=== PATIENT | male | born 2000 | race Caucasian/White ===

== ENCOUNTER 2023-07-06 22:26 | Inpatient (IN) ==
[2023-07-06 23:03] LABS: Basophils # (auto) 0.03 K/uL (0.00-0.20); Basophils % (auto) 0.5 %; Eosinophils # (auto) 0.01 K/uL (0.00-0.50); Eosinophils % (auto) 0.2 %; Hematocrit (blood only) 40.4 % (42.0-52.0); Hemoglobin 14.5 g/dl (14.0-18.0); Immature Granulocytes # (auto) 0.02 K/uL (0.01-0.20); Immature Granulocytes % (auto) 0.3 %; Lymphocytes # (auto) 1.17 K/uL (1.20-3.40); Lymphocytes % (auto) 19.4 %; Mean Corpuscular Hemoglobin 29.3 pg (25.0-34.0); Mean Corpuscular Hgb Conc 35.9 g/dL (32.0-36.0); Mean Corpuscular Volume 81.6 fL (80.0-100.0); Mean Platelet Volume 9.1 fL (9.4-12.4); Monocytes # (auto) 0.39 K/uL (0.11-0.59); Monocytes % (auto) 6.5 %; Neutrophils % (auto) 73.1 %; Platelet Count 348 K/uL (130-400); RDW Coefficient of Variation 12.2 % (11.5-14.5); RDW Standard Deviation 36.2 fL (36.4-46.3); Red Blood Count 4.95 M/uL (4.70-6.10); White Blood Count 6.02 K/ul (4.8-10.8)
--- NOTE | 2023-07-06 23:28 | Emergency Department Note ---
Impression & Plan Drug overdose, Depression ED Provider Note ED Provider Note NAME: GABBY SCHMIDT AGE:22 SEX: Male : 2000 ARRIVES VIA: Private vehicle INFORMANT: Patient ED PROVIDER(s): Jacquie Quigley DO CHIEF COMPLAINT: Intentional overdose, mental health evaluation HPI: This is a 22-year-old male who presents emergency department due to concern for intentional overdose. Patient with a history of depression and does typically take Wellbutrin 100 mg twice a day. He does follow with psychiatry as well as seeing a therapist weekly. He admits to increased stress/pressure from academics this semester and is concerned about graduating. He states at 430 this afternoon he took a handful of his Wellbutrin, estimating that the number of pills was in the "teens". He states he never had symptoms until around 930 when he began to feel like he was "tripping", stating that he was lightheaded and had some hallucinations. He states these were very brief and resolved spontaneously. No other coingestions or recreational drug use this evening. He denies any alcohol use this evening. No current hallucinations. He states he feels shaky and anxious and has mild nausea but otherwise feels well. He denies headaches, abdominal pain, chest pain, shortness of breath. PAST MEDICAL HISTORY:See Below PAST SURGICAL HISTORY:See Below FAMILY HISTORY:See Below SOCIAL HISTORY:See Below HOME MEDICATIONS:See Below ALLERGIES:See Below VITALS:See Below PHYSICAL EXAMINATION: GENERAL: alert, well appearing, well nourished, no distress, non-toxic EYE EXAM: normal conjunctiva, PERRL and EOM's grossly intact NECK: supple, no nuchal rigidity, no adenopathy, non-tender LUNGS: Clear to auscultation. Normal chest wall mechanics, no w/r/r HEART: no murmurs, S1 normal and S2 normal ABDOMEN: abdomen soft, non-tender, normo-active bowel sounds, no masses, no rebound or guarding. SKIN: no rashes, petechiae, orbruising UPPER EXTREMITIES: upper extremities are grossly normal. FROM, nml pulses b/l. LOWER EXTREMITIES: No pitting edema. FROM, nml pulses b/l. NEURO EXAM: Normal sensorium, cranial nerves II-XII grossly intact, normal speech, no facial droop,nogross weakness of arms, no gross weakness of legs. Gross sensation intact. No ataxia. Vital Signs: reviewed and remarkable Differential Diagnosis: mood disorder, suicidal ideation, anxiety, depression, substance abuse, toxidrome, infection, hypoglycemia, electrolyte abnormalities, ICH as well as others were considered. MEDICAL DECISION MAKING: This is a 22-year-old male who presents following an intentional overdose. Poison control contacted by nursing staff prior to my arrival with instructions for supportive care and that patient can be observed for 12 hours from the ingestion this patient's Wellbutrin was not extended release. Labs drawn and sent, IV established, EKG performed at bedside interpreted me and patient monitored on telemetry. He was given IV fluids while monitored. He had mild nausea initially and was given Compazine with improvement. He tolerated p.o. without any vomiting. Patient medically cleared at 5 AM. Repeat EKG unremarkable. He was seen and evaluated by case management and referred to [facility] for additional inpatient treatment. Consultation(s): 0818: Signed 201 after discussion with [facility] liaison. ER Treatment Provided: See below Diagnostics Interpreted By Me: -ECG: Normal sinus at 99, normal axis, normal intervals, nonspecific ST/T wave changes -Cardiac Monitoring: An order was placed for continuous cardiac monitoring. The monitor shows a rate of 105 with sinus tachycardia rhythm. -Laboratory studies: As stated above and show below. Triage Nursing Note Reviewed Prior/Outside Records Reviewed Past Med/Surg History Social History Smoking Status: Never smoker Preferred Language: Kyrgyz Feels Safe at Home: Yes Gender Identity: Male Home Meds Home Medications Medication Instructions Recorded Confirmed bupropion HCl 150 mg tablet,12 hr 100 mg PO DAILY 07/07/23 07/07/23 sustained-release mirtazapine 15 mg tablet 7.5 mg PO HS 07/07/23 07/07/23 Results & Data (ED) Vital Signs Vital Signs - 24 hr 07/06/23 22:29 07/06/23 22:44 07/06/23 22:45 Temperature 36.6 C Temperature Source Temporal Artery Scan Pulse Rate 112 H 105 H 102 H Pulse Rate [Apical] Pulse Rate from SpO2 Sensor Pulse Rhythm Regular Pulse Rhythm [Apical] Pulse Strength Normal Pulse Strength [Apical] Respiratory Rate 17 16 Respiratory Effort / Characteristics Non-Labored Spontaneous Respiratory Depth Normal Respiratory Pattern Regular Blood Pressure 157/103 H Blood Pressure [Left Arm] Blood Pressure Mean 121 Blood Pressure Mean [Left Arm] Blood Pressure Position Sitting Blood Pressure Position [Left Arm] Pulse Oximetry 99 Oxygen Delivery Method Room Air Sepsis Recent Fever Within 48 Hours No Sepsis New/Unexplained Change in Mental Status N/A Sepsis Action Taken by Nursing No Action Required 07/06/23 22:50 07/06/23 22:50 07/06/23 22:52 Temperature Temperature Source Pulse Rate 112 H Pulse Rate [Apical] Pulse Rate from SpO2 Sensor 112 H Pulse Rhythm Pulse Rhythm [Apical] Pulse Strength Pulse Strength [Apical] Respiratory Rate 17 Respiratory Effort / Characteristics Respiratory Depth Respiratory Pattern Blood Pressure Blood Pressure [Left Arm] Blood Pressure Mean Blood Pressure Mean [Left Arm] Blood Pressure Position Blood Pressure Position [Left Arm] Pulse Oximetry 100 100 Oxygen Delivery Method Room Air Room Air Sepsis Recent Fever Within 48 Hours Sepsis New/Unexplained Change in Mental Status Sepsis Action Taken by Nursing 07/06/23 23:00 07/06/23 23:00 07/06/23 23:10 Temperature Temperature Source Pulse Rate 103 H 105 H Pulse Rate [Apical] Pulse Rate from SpO2 Sensor 105 H 105 H Pulse Rhythm Pulse Rhythm [Apical] Pulse Strength Pulse Strength [Apical] Respiratory Rate 22 15 Respiratory Effort / Characteristics Respiratory Depth Respiratory Pattern Blood Pressure 130/83 Blood Pressure [Left Arm] Blood Pressure Mean 95 Blood Pressure Mean [Left Arm] Blood Pressure Position Blood Pressure Position [Left Arm] Pulse Oximetry 98 98 Oxygen Delivery Method Sepsis Recent Fever Within 48 Hours Sepsis New/Unexplained Change in Mental Status Sepsis Action Taken by Nursing 07/06/23 23:20 07/06/23 23:31 07/07/23 00:00 Temperature Temperature Source Pulse Rate 105 H 114 H Pulse Rate [Apical] 110 H Pulse Rate from SpO2 Sensor 108 H Pulse Rhythm Pulse Rhythm [Apical] Pulse Strength Pulse Strength [Apical] Respiratory Rate 19 18 12 Respiratory Effort / Characteristics Non-Labored Spontaneous Respiratory Depth Normal Respiratory Pattern Regular Blood Pressure 140/94 Blood Pressure [Left Arm] 146/95 H Blood Pressure Mean 109 Blood Pressure Mean [Left Arm] 112 Blood Pressure Position Blood Pressure Position [Left Arm] Pulse Oximetry 98 98 99 Oxygen Delivery Method Room Air Sepsis Recent Fever Within 48 Hours Sepsis New/Unexplained Change in Mental Status Sepsis Action Taken by Nursing 07/07/23 01:00 07/07/23 01:30 07/07/23 01:36 Temperature Temperature Source Pulse Rate 91 H Pulse Rate [Apical] 98 H 98 H Pulse Rate from SpO2 Sensor Pulse Rhythm Pulse Rhythm [Apical] Pulse Strength Pulse Strength [Apical] Respiratory Rate 12 16 14 Respiratory Effort / Characteristics Non-Labored Spontaneous Non-Labored Spontaneous Respiratory Depth Normal Normal Respiratory Pattern Regular Regular Blood Pressure 124/83 Blood Pressure [Left Arm] 137/92 124/83 Blood Pressure Mean 96 Blood Pressure Mean [Left Arm] 107 96 Blood Pressure Position Blood Pressure Position [Left Arm] Pulse Oximetry 96 96 97 Oxygen Delivery Method Room Air Room Air Sepsis Recent Fever Within 48 Hours Sepsis New/Unexplained Change in Mental Status Sepsis Action Taken by Nursing 07/07/23 02:00 07/07/23 02:00 07/07/23 02:30 Temperature Temperature Source Pulse Rate 101 H Pulse Rate [Apical] Pulse Rate from SpO2 Sensor 99 H Pulse Rhythm Pulse Rhythm [Apical] Pulse Strength Pulse Strength [Apical] Respiratory Rate 18 Respiratory Effort / Characteristics Respiratory Depth Respiratory Pattern Blood Pressure 130/83 129/72 Blood Pressure [Left Arm] Blood Pressure Mean 100 91 Blood Pressure Mean [Left Arm] Blood Pressure Position Blood Pressure Position [Left Arm] Pulse Oximetry 97 Oxygen Delivery Method Room Air Sepsis Recent Fever Within 48 Hours Sepsis New/Unexplained Change in Mental Status Sepsis Action Taken by Nursing 07/07/23 02:30 07/07/23 02:39 07/07/23 03:00 Temperature Temperature Source Pulse Rate 98 H 101 H 89 Pulse Rate [Apical] Pulse Rate from SpO2 Sensor 97 H 93 H Pulse Rhythm Pulse Rhythm [Apical] Pulse Strength Pulse Strength [Apical] Respiratory Rate 13 17 Respiratory Effort / Characteristics Respiratory Depth Respiratory Pattern Blood Pressure Blood Pressure [Left Arm] Blood Pressure Mean Blood Pressure Mean [Left Arm] Blood Pressure Position Blood Pressure Position [Left Arm] Pulse Oximetry 96 96 Oxygen Delivery Method Room Air Room Air Sepsis Recent Fever Within 48 Hours Sepsis New/Unexplained Change in Mental Status Sepsis Action Taken by Nursing 07/07/23 03:00 07/07/23 03:30 07/07/23 03:30 Temperature Temperature Source Pulse Rate 101 H Pulse Rate [Apical] Pulse Rate from SpO2 Sensor 96 H Pulse Rhythm Pulse Rhythm [Apical] Pulse Strength Pulse Strength [Apical] Respiratory Rate 13 Respiratory Effort / Characteristics Respiratory Depth Respiratory Pattern Blood Pressure 128/74 130/73 Blood Pressure [Left Arm] Blood Pressure Mean 90 91 Blood Pressure Mean [Left Arm] Blood Pressure Position Blood Pressure Position [Left Arm] Pulse Oximetry 97 Oxygen Delivery Method Room Air Sepsis Recent Fever Within 48 Hours Sepsis New/Unexplained Change in Mental Status Sepsis Action Taken by Nursing 07/07/23 04:00 07/07/23 04:00 07/07/23 04:30 Temperature Temperature Source Pulse Rate 86 Pulse Rate [Apical] Pulse Rate from SpO2 Sensor 86 Pulse Rhythm Pulse Rhythm [Apical] Pulse Strength Pulse Strength [Apical] Respiratory Rate 17 Respiratory Effort / Characteristics Respiratory Depth Respiratory Pattern Blood Pressure 123/70 123/75 Blood Pressure [Left Arm] Blood Pressure Mean 88 91 Blood Pressure Mean [Left Arm] Blood Pressure Position Blood Pressure Position [Left Arm] Pulse Oximetry 96 Oxygen Delivery Method Room Air Sepsis Recent Fever Within 48 Hours Sepsis New/Unexplained Change in Mental Status Sepsis Action Taken by Nursing 07/07/23 04:30 07/07/23 04:30 07/07/23 05:00 Temperature Temperature Source Pulse Rate 85 Pulse Rate [Apical] 85 Pulse Rate from SpO2 Sensor 85 Pulse Rhythm Pulse Rhythm [Apical] Regular Pulse Strength Pulse Strength [Apical] Normal Respiratory Rate 17 16 Respiratory Effort / Characteristics Non-Labored Spontaneous Respiratory Depth Normal Respiratory Pattern Regular Blood Pressure 126/74 Blood Pressure [Left Arm] 123/75 Blood Pressure Mean 96 Blood Pressure Mean [Left Arm] 91 Blood Pressure Position Blood Pressure Position [Left Arm] Lying Pulse Oximetry 96 95 Oxygen Delivery Method Room Air Room Air Sepsis Recent Fever Within 48 Hours Sepsis New/Unexplained Change in Mental Status Sepsis Action Taken by Nursing 07/07/23 05:00 07/07/23 05:30 07/07/23 05:30 Temperature Temperature Source Pulse Rate 85 95 H Pulse Rate [Apical] Pulse Rate from SpO2 Sensor 85 97 H Pulse Rhythm Pulse Rhythm [Apical] Pulse Strength Pulse Strength [Apical] Respiratory Rate 17 20 Respiratory Effort / Characteristics Respiratory Depth Respiratory Pattern Blood Pressure 129/84 Blood Pressure [Left Arm] Blood Pressure Mean 96 Blood Pressure Mean [Left Arm] Blood Pressure Position Blood Pressure Position [Left Arm] Pulse Oximetry 96 98 Oxygen Delivery Method Room Air Sepsis Recent Fever Within 48 Hours Sepsis New/Unexplained Change in Mental Status Sepsis Action Taken by Nursing 07/07/23 06:00 07/07/23 06:00 07/07/23 06:00 Temperature Temperature Source Pulse Rate 84 Pulse Rate [Apical] 78 Pulse Rate from SpO2 Sensor 86 Pulse Rhythm Pulse Rhythm [Apical] Regular Pulse Strength Pulse Strength [Apical] Normal Respiratory Rate 16 17 Respiratory Effort / Characteristics Non-Labored Spontaneous Respiratory Depth Normal Respiratory Pattern Regular Blood Pressure 126/71 Blood Pressure [Left Arm] 126/71 Blood Pressure Mean 89 Blood Pressure Mean [Left Arm] 89 Blood Pressure Position Blood Pressure Position [Left Arm] Lying Pulse Oximetry 95 97 Oxygen Delivery Method Room Air Sepsis Recent Fever Within 48 Hours Sepsis New/Unexplained Change in Mental Status Sepsis Action Taken by Nursing 07/07/23 06:24 07/07/23 06:30 07/07/23 06:30 Temperature Temperature Source Pulse Rate 83 86 Pulse Rate [Apical] Pulse Rate from SpO2 Sensor 88 Pulse Rhythm Pulse Rhythm [Apical] Pulse Strength Pulse Strength [Apical] Respiratory Rate 17 Respiratory Effort / Characteristics Respiratory Depth Respiratory Pattern Blood Pressure 122/75 Blood Pressure [Left Arm] Blood Pressure Mean 90 Blood Pressure Mean [Left Arm] Blood Pressure Position Blood Pressure Position [Left Arm] Pulse Oximetry 97 Oxygen Delivery Method Sepsis Recent Fever Within 48 Hours Sepsis New/Unexplained Change in Mental Status Sepsis Action Taken by Nursing 07/07/23 07:00 07/07/23 07:00 07/07/23 07:30 Temperature Temperature Source Pulse Rate 86 88 Pulse Rate [Apical] Pulse Rate from SpO2 Sensor 87 88 Pulse Rhythm Pulse Rhythm [Apical] Pulse Strength Pulse Strength [Apical] Respiratory Rate 17 19 Respiratory Effort / Characteristics Respiratory Depth Respiratory Pattern Blood Pressure 129/81 Blood Pressure [Left Arm] Blood Pressure Mean 98 Blood Pressure Mean [Left Arm] Blood Pressure Position Blood Pressure Position [Left Arm] Pulse Oximetry 97 99 Oxygen Delivery Method Sepsis Recent Fever Within 48 Hours Sepsis New/Unexplained Change in Mental Status Sepsis Action Taken by Nursing 07/07/23 07:30 Temperature Temperature Source Pulse Rate Pulse Rate [Apical] Pulse Rate from SpO2 Sensor Pulse Rhythm Pulse Rhythm [Apical] Pulse Strength Pulse Strength [Apical] Respiratory Rate Respiratory Effort / Characteristics Respiratory Depth Respiratory Pattern Blood Pressure 132/86 Blood Pressure [Left Arm] Blood Pressure Mean 99 Blood Pressure Mean [Left Arm] Blood Pressure Position Blood Pressure Position [Left Arm] Pulse Oximetry Oxygen Delivery Method Sepsis Recent Fever Within 48 Hours Sepsis New/Unexplained Change in Mental Status Sepsis Action Taken by Nursing Laboratory Data 07/06/23 22:48 07/06/23 22:50 Lab Results 07/06/23 07/06/23 07/06/23 Range/Units 22:35 22:48 22:50 WBC 6.02 (4.8-10.8) K/ul RBC 4.95 (4.70-6.10) M/uL Hgb 14.5 (14.0-18.0) g/dl Hct 40.4 L (42.0-52.0) % MCV 81.6 (80.0-100.0) fL MCH 29.3 (25.0-34.0) pg MCHC 35.9 (32.0-36.0) g/dL RDW Std Deviation 36.2 L (36.4-46.3) fL RDW Coeff of Teodoro 12.2 (11.5-14.5) % Plt Count 348 (130-400) K/uL MPV 9.1 L (9.4-12.4) fL Immature Gran % (Auto) 0.3 % Neut % (Auto) 73.1 % Lymph % (Auto) 19.4 % [place] % (Auto) 6.5 % Eos % (Auto) 0.2 % Baso % (Auto) 0.5 % Neut # (Auto) 4.40 (1.40-6.50) K/uL Lymph # (Auto) 1.17 L (1.20-3.40) K/uL [place] # (Auto) 0.39 (0.11-0.59) K/uL Eos # (Auto) 0.01 (0.00-0.50) K/uL Baso # (Auto) 0.03 (0.00-0.20) K/uL Immature Gran # (Auto) 0.02 (0.01-0.20) K/uL Sodium 136 (136-145) mmol/L Potassium 3.2 L (3.5-5.1) mmol/L Chloride 102 (98-107) mmol/L Carbon Dioxide 23 (21-32) mmol/L Anion Gap 11 (3-11) BUN 10 (6-23) mg/dl Creatinine 1.07 (0.6-1.4) mg/dl Est Cr Clr Drug Dosing 102.1 ml/min Est GFR ( Amer) 114.4 ml/min Est GFR (Non-Af Amer) 98.7 ml/min BUN/Creatinine Ratio 9.3 L (10-20) Glucose 106 H (70-99(Fasting)) mg/dl Calcium 9.6 (8.6-10.3) mg/dl Total Bilirubin 2.6 H (0.2-1.0) mg/dl AST 22 (13-39) U/L ALT 21 (7-52) U/L Alkaline Phosphatase 50 (34-104) U/L Total Protein 7.3 (6.0-8.3) gm/dl Albumin 4.8 (3.4-5.0) gm/dl Globulin 2.5 (2.5-4.0) gm/dl Albumin/Globulin Ratio 1.9 (0.9-2) Salicylates < 3.0 L (3.0-30) mg/dl Urine Opiates Screen Neg (Neg) Ur Methadone, Qual Neg (Neg) Acetaminophen < 3 L (10-30) ug/ml Urine Barbiturates Neg (Neg) Ur Phencyclidine (PCP) Neg (Neg) U Amphetamin/Meth Scrn Neg (Neg) MDMA (Ecstasy) Screen Pos H (Neg) U Benzodiazepines Scrn Neg (Neg) Ur Cocaine Metabolite Neg (Neg) U Marijuana (THC) Screen Neg (Neg) Ethyl Alcohol mg/dL < 10.0 (<10.0) mg/dl SARS-CoV-2, RNA, NAAT NEGATIVE (NEGATIVE) Administered Medications Sodium Chloride (Nss) 1,000 mls @ 250 mls/hr IV .Q4H JULIA Stop: 08/05/23 23:29 Last Infusion: 07/07/23 08:08 Dose: Infused Documented By: Admin: 07/07/23 04:05 Dose: 250 mls/hr Documented By: Infusion: 07/07/23 03:37 Dose: Infused Documented By: Admin: 07/06/23 23:29 Dose: 250 mls/hr Documented By: MAIN Discontinued Medications Prochlorperazine (Compazine) 1 mls @ 1 mls/min IV ONE ONE Stop: 07/07/23 01:07 Last Admin: 07/07/23 01:13 Dose: 1 mls/min Documented By: MAIN Discharge Plan Visit Data Chief Complaint: Overdose (Intentional) Stated Complaint: INTENTIONAL OVERDOSE ED Provider: Jacquie Quigley Discharge Problem: Drug overdose, Depression Forms Stand Alone Forms: My [facility] [place], Suicide Prevention Resources Prescriptions Prescriptions: No Action bupropion HCl 150 mg tablet sustained-release 12 hr 100 mg PO DAILY mirtazapine 15 mg tablet 7.5 mg PO HS Referrals Referrals: PCP,NO [Physician] -
[2023-07-06] MEDS: SODIUM CHLORIDE 0.9% 1,000 ML IV SCH (23:29)
[2023-07-06 23:39] LABS: Albumin Globulin Ratio 1.9 (0.9-2); Albumin Level 4.8 gm/dl (3.4-5.0); BUN Creatinine Ratio 9.3 (10-20); Bilirubin,Total 2.6 mg/dl (0.2-1.0); Calcium 9.6 mg/dl (8.6-10.3); Creatinine Clr Calc Pharmacy 102.1 ml/min; Est GFR (African American) 114.4 ml/min; Est GFR (Non-African American) 98.7 ml/min; Globulin 2.5 gm/dl (2.5-4.0); Potassium 3.2 mmol/L (3.5-5.1); Total Protein 7.3 gm/dl (6.0-8.3)
[2023-07-07] LABS: Acetaminophen < 3 ug/ml (10-30); Salicylate < 3.0 mg/dl (3.0-30)
[2023-07-07] LABS: Amphetamines+Metham, Urine Neg (Neg); Barbiturates, Urine Neg (Neg); Benzodiazepine, Urine Neg (Neg); Cocaine, Urine Neg (Neg); MDMA (Ecstacy), Urine Pos (Neg); Marijuana, Urine Neg (Neg); Methadone, Urine Neg (Neg); Opiate, Urine Neg (Neg); Phencyclidine, Urine Neg (Neg)
[2023-07-07] MEDS: PROCHLORPERAZINE 1 ML IV ONE (01:13)
[2023-07-07 08:29] VITALS: O2SAT 98
[2023-07-07 09:08] VITALS: RESP 16
[2023-07-07] MEDS ORDERED: hydrOXYzine HCl 25 MG TAB PO PRN ×2 (09:44)
[2023-07-07] MEDS ORDERED: ALUMINUM/MAGNESIUM SUSP 30 ML UDC PO PRN (09:44)
[2023-07-07] MEDS ORDERED: MAGNESIUM HYDROXIDE SUSP 30 ML UDC PO PRN (09:44)
[2023-07-07] MEDS ORDERED: ACETAMINOPHEN 325 MG TAB PO PRN (09:44)
[2023-07-07] MEDS ORDERED: BISMUTH SUBSALICYLATE LIQD 236 ML PO PRN (09:44)
[2023-07-07] MEDS ORDERED: SODIUM CHLORIDE 0.65% NA SOLN 45 ML (OCEAN) PRN (09:44)
[2023-07-07] MEDS ORDERED: Patient's ALLERGY Info needs ENTERED STA (09:55)
--- NOTE | 2023-07-07 10:33 | Electrocardiogram Report ---
Test Reason : Blood Pressure : / mmHG Vent. Rate : 090 BPM Atrial Rate : 090 BPM P-R Int : 138 ms QRS Dur : 106 ms QT Int : 368 ms P-R-T Axes : 039 053 027 degrees QTc Int : 450 ms Normal sinus rhythm Normal ECG When compared with ECG of 06-JUL-2023 22:49, (unconfirmed) No significant change was found Confirmed by Raul Garrido ([id number]) on 07/07/2023 10:32:50 AM Referred By: REFERRED SELF Confirmed By:Raul Garrido
--- NOTE | 2023-07-07 10:33 | Electrocardiogram Report ---
Test Reason : Blood Pressure : / mmHG Vent. Rate : 099 BPM Atrial Rate : 099 BPM P-R Int : 140 ms QRS Dur : 108 ms QT Int : 362 ms P-R-T Axes : 053 039 012 degrees QTc Int : 464 ms Normal sinus rhythm Normal ECG No previous ECGs available Confirmed by Raul Garrido ([id number]) on 07/07/2023 10:32:37 AM Referred By: REFERRED SELF Confirmed By:Raul Garrido
--- NOTE | 2023-07-07 15:11 | History & Physical ---
Date of Service July 07, 2023 Impression / Recommendations Impression This is a young man who has been pushing himself very hard for the last many years. He is always been a high achiever and is having some difficulty this semester. This makes him extremely uncomfortable and anxious and he will catastrophize about not being able to graduate. He is also the adult child of an alcoholic which I am sure is playing a factor in this. He is getting treatment for anxiety and depression and the medications are reasonable. He does have some support from friends and from family. Given the impulsivity of the overdose, I am concerned that this could happen again very easily if he does not learn some better strategies to deal with his stress. Nevertheless the fact that he cannot identify a particular trigger to the overdose is concerning because it is not clear exactly what we should be focusing on is the "the problem." (1) Major depressive disorder, single episode, severe without psychotic features: (2) Generalized anxiety disorder: Plan 1. The patient is admitted here for safety, further evaluation, and treatment. Given what happened, I think is very reasonable for him to be here. I think he is still at risk of an impulsive suicide attempt again. 2. Patient is in our psychiatric unit voluntarily. We will continue with her current level of observation and precautions. I encouraged him to participate in the therapeutic milieu to help distract him from his stress. 3. We will hold off on his Wellbutrin for now, but we will resume the mirtazapine to help him sleep at night. In the next few days we will likely restart the Wellbutrin in the XL form at 150 mg daily. 4. Our medical people are available to evaluate and treat any medical issues that may arise. 5. I encouraged the patient to take part in our therapeutic milieu, attend groups and activities, maintain good hygiene, and try not to isolate. 6. A family meeting will be set up's towards the end of his stay to help with discharge planning and safety. 7. Disposition will likely be back to his apartment so that he can continue school. He also was about to start spring break and has a marketing class activity connected to the spring break. It will also give him a chance to catch up on his work that he might miss this week. Today I spent about 95 minutes on the case. This included meeting with the patient, reviewing the chart, discussing the patient with the nurse in the emergency department, multidisciplinary staff meeting, orders, and documentation. 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 He presented to the emergency department the evening of July 06 after he got scared after an impulsive overdose of bupropion. He was admitted into our unit this morning on a 201 voluntary. Chief Complaint "I overdosed on Wellbutrin." History of Present Illness Today I met with the patient for approximately an hour. Patient says that yesterday, July 06 at about 4:30 PM he impulsively swallowed a handful of Wellbutrin immediate release 100 mg tablets. He thinks that it was something between 10 and 20 tablets. He says they did not start to "kick in" until around 10 PM and then he started feeling shaky and sleepy. He got scared and contacted his friend who brought him to the emergency room. He never had a seizure on this overdose. He says he started taking the medication in February 2022 and was supposed to start Wellbutrin XL 150 mg daily starting today, July 07. He says that he has been under quite a bit of stress. Since the second week of this semester, he has been turning in work that he thinks is good but he gets lower grades. He says this is happening in several classes and he is worried he may not pass all of his classes and be able to graduate on time. 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 For the last 7 weeks or so he has been feeling burned out and exhausted. Yesterday, there was no particular trigger, but it was time for him to take his normal second dose of Wellbutrin and he impulsively swallowed a bunch of them. He said that he did not expect to . There is no history of any prior suicide attempts. He said that he called his friend crying "I do not want to ." Grades have traditionally been good. 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 He is not in a relationship. He is involved in the [employer]. 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 He has no legal issues or major medical issues. He says he has good support from 3 close friends and his mother. 2 of the friends are here in school and one of them is at his home. He is currently living in [facility] in a 1 bedroom apartment close to where he goes to school. His mother and stepfather live in [place], [place] in a house with 19-year-old sister. The patient has no other siblings. He said his sleep has been good with the help of mirtazapine. Appetite is good. He described his mood as "anxious, tired, and burnt out." Energy has been poor. He has some anhedonia. There have been no changes to his concentration. He feels guilt about his academic performance. He feels somewhat hopeless about his academics. He denies homicidal or suicidal thoughts today. He denies any history of any self-harm. When asked about any history of trauma, he mentioned that his father is alcoholic and can sometimes become "aggressive." He says that he and his family are often walking on eggshells when he is in the home. He sometimes will get tr iggered by other people's alcohol use because it reminds him of his father's use. There are no auditory or visual hallucinations. No ideas of reference. Will sometimes vape nicotine but does not use any drugs or marijuana. He says he uses alcohol about weekly and will have 2 or 3 drinks. There is no history of any sandra. Past Psychiatric History Previous Psych History: He has a history of depression and anxiety. Current Psychiatric Diagnosis: OD/ MDD Outpatient Services: He sees a psychiatrist through [facility]. He also has a therapist that he sees about every other week. Previous Psych Admissions: None Do You Have Access To A Gun?: No (will confirm prior to discharge) History of Previous Suicide Attempt: No Past Medication Trials: He has only been on Wellbutrin immediate release and mirtazapine. Past Head Trauma/Neuro History Patient has no chronic medical issues. No medical hospitalizations. The only surgery he has ever had is his wisdom teeth removed. No history of seizures or head trauma with loss of consciousness. Allergies Allergy/AdvReac Type Severity Reaction Status Date / Time No Known Allergies Allergy Unverified 07/07/23 10:19 Home Medications Medication Instructions Recorded Confirmed Type bupropion HCl 150 mg tablet,12 hr 150 mg PO BID 07/07/23 07/07/23 History sustained-release mirtazapine 15 mg tablet 7.5 mg PO HS 07/07/23 07/07/23 History Family History Family History of: Doesn't Know Family Mental Health History Comment: Nobody in the family is ever attempted or completed suicide. Father was aggressive alcoholism grandmother- PPD paternal side of family has signifigant addiction issues Maternal aunt has bipolar disorder Alcohol History Hx of Alcohol Use Over the Past 12 Months: No AUDIT Total Score: 2 Smoking Use Have You Smoked or Used Tobacco Products in the Last 30 Days: Yes tobacco type: e-cigarettes Smoking Status: Current some day smoker Substance History Hx of Prescription Med Misuse Over the Past 12 Months: No Hx of Over the Counter Med Misuse Over the Past 12 Months: No Hx of Inhalent Misuse Over the Past 12 Months: No Hx of Organic Substance Use Over the Past 12 Months: No Hx of Illegal Substances/Street Drug Use Over Past 12 Months: No Problems as a Result of Past Substance Use: None Identified Personal History Living Arrangements: Apartment Living Arrangements Comments: lives alone in apartment directly accross from campus Highest Grade Completed: College Highest Grade Completed Comment: 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 No headache or fever. No problems with eyes, ears, nose, teeth, or swallowing. No pain or swelling in their neck. No wheezing, coughing, or shortness of breath. No chest pain or irregular heart rate, but he said that earlier he had an elevated heart rate. No diarrhea, upset stomach, or constipation. No dysuria, problems emptying their bladder, initiating a urine stream, or hematuria. No skin lesions. No concerns about an STD. No muscle weakness, numbness, tingling, or tremors. No broken bones. No problems with their joints. No problems with their feet. No bleeding problems. Physical Exam Psychiatric: Patient was alert and oriented x 3. He was clean and well-groomed in scrubs. Eye contact was good. Speech was normal. Mood was "anxious, tired, and burnt out." Affect was slightly restricted. Thought process was logical and goal- directed. There was no evidence of any hallucinations or delusions. Patient denied any suicidal or homicidal thoughts. Memory was good; he knew his bi rthdate, the president's name, and the capital of [place]. Concentration was good; he could spell the word world backwards very easily. Gait was normal. Insight and judgment are impaired. Vital Signs (Past 24 Hours): Last Vital Signs Temp 36.7 C 07/07/23 09:00 Pulse 80 07/07/23 09:00 Resp 16 07/07/23 09:00 BP 132/86 07/07/23 09:00 Pulse Ox 98 07/07/23 08:27 O2 Del Method Room Air 07/07/23 08:27 Exam Statement: A physical exam was performed overnight by Dr. Jacquie Quigley. Everything in the physical exam was completely normal. Results & Data ([facility]) Laboratory Results Laboratory Results - last 24 hr 07/06/23 07/06/23 07/06/23 22:35 22:48 22:50 WBC 6.02 RBC 4.95 Hgb 14.5 Hct 40.4 L MCV 81.6 MCH 29.3 MCHC 35.9 RDW Std Deviation 36.2 L RDW Coeff of Teodoro 12.2 Plt Count 348 MPV 9.1 L Immature Gran % (Auto) 0.3 Neut % (Auto) 73.1 Lymph % (Auto) 19.4 Cooke % (Auto) 6.5 Eos % (Auto) 0.2 Baso % (Auto) 0.5 Neut # (Auto) 4.40 Lymph # (Auto) 1.17 L Cooke # (Auto) 0.39 Eos # (Auto) 0.01 Baso # (Auto) 0.03 Immature Gran # (Auto) 0.02 Sodium 136 Potassium 3.2 L Chloride 102 Carbon Dioxide 23 Anion Gap 11 BUN 10 Creatinine 1.07 Est Cr Clr Drug Dosing 102.1 Est GFR ( Amer) 114.4 Est GFR (Non-Af Amer) 98.7 BUN/Creatinine Ratio 9.3 L Glucose 106 H Calcium 9.6 Total Bilirubin 2.6 H AST 22 ALT 21 Alkaline Phosphatase 50 Total Protein 7.3 Albumin 4.8 Globulin 2.5 Albumin/Globulin Ratio 1.9 Salicylates < 3.0 L Urine Opiates Screen Neg Ur Methadone, Qual Neg Acetaminophen < 3 L Urine Barbiturates Neg Ur Phencyclidine (PCP) Neg U Amphetamin/Meth Scrn Neg Urine MDEA Pending MDMA (Ecstasy) Screen Pos H MDMA Pending Urine MDMA Pending U Benzodiazepines Scrn Neg Ur Cocaine Metabolite Neg U Marijuana (THC) Screen Neg Ethyl Alcohol mg/dL < 10.0 SARS-CoV-2, RNA, NAAT NEGATIVE Current Inpatient Medications Current Inpatient Medications: Current Inpatient Medications Acetaminophen (Acetaminophen 325 Mg Tab) 650 mg PO Q4H PRN PRN Reason: Headache or Minor Fever Stop: 08/06/23 09:43 Al Hydrox/Mg Hydrox/Simethicone (Aluminum/Magnesium Susp 30 Ml Udc) 30 ml PO Q4H PRN PRN Reason: GI Upset Stop: 08/06/23 09:43 Bismuth Subsalicylate (Bismuth Subsalicylate Liqd 236 Ml) 15 ml PO PRN PRN PRN Reason: Loose Stool Stop: 08/06/23 09:43 Hydroxyzine HCl (Hydroxyzine Hcl 25 Mg Tab) 50 mg PO HSZ PRN PRN Reason: Insomnia Stop: 08/06/23 09:43 Hydroxyzine HCl (Hydroxyzine Hcl 25 Mg Tab) 25 mg PO Q4H PRN PRN Reason: Anxiety Stop: 08/06/23 09:43 Magnesium Hydroxide (Magnesium Hydroxide Susp 30 Ml Udc) 30 ml PO DAILY PRN PRN Reason: Constipation Stop: 08/06/23 09:43 Sodium Chloride (Sodium Chloride 0.65% Na Soln 45 Ml ([place])) 1 - 2 sprays NA PRN PRN PRN Reason: Nasal Dryness/Congestion Stop: 08/06/23 09:43
[2023-07-07] MEDS: MIRTAZAPINE TAB 15 MG TAB PO SCH (21:18)
--- NOTE | 2023-07-08 14:31 | Psychiatric Progress Note ---
Date of Service July 08, 2023 Impression / Recommendations Impression This is a young man who has been pushing himself very hard for the last many years. He is always been a high achiever and is having some difficulty this semester. This makes him extremely uncomfortable and anxious and he will catastrophize about not being able to graduate. He is also the adult child of an alcoholic which I am sure is playing a factor in this. He is getting treatment for anxiety and depression and the medications are reasonable. He does have some support from friends and from family. Given the impulsivity of the overdose, I am concerned that this could happen again very easily if he does not learn some better strategies to deal with his stress. Nevertheless the fact that he cannot identify a particular trigger to the overdose is concerning because it is not clear exactly what we should be focusing on is the "the problem." 07/08/23: Patient is doing well on the unit and trying hard. He is attending groups and activities reliably. He is recovering physically. He seems to neda lly want help. (1) Major depressive disorder, single episode, severe without psychotic features: (2) Generalized anxiety disorder: Plan 1. The patient is admitted here for safety, further evaluation, and treatment. Given what happened, I think is very reasonable for him to be here. I think he is still at risk of an impulsive suicide attempt again. 2. Patient is in our psychiatric unit voluntarily. We will continue with her current level of observation and precautions. I encouraged him to participate in the therapeutic milieu to help distract him from his stress. 3. We will hold off on his Wellbutrin for now, but we will resume the mirtazapine to help him sleep at night. In the next few days we will likely restart the Wellbutrin in the XL form at 150 mg daily. 4. Our medical people are available to evaluate and treat any medical issues that may arise. 5. I encouraged the patient to take part in our therapeutic milieu, attend groups and activities, maintain good hygiene, and try not to isolate. 6. A family meeting will be set up's towards the end of his stay to help with discharge planning and safety. 7. Disposition will likely be back to his apartment so that he can continue school. 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 It will also give him a chance to catch up on his work that he might miss this week. 07/08/23: We will continue with our current level of observation and precautions. I encouraged him to keep going to groups and activities to help distract himself, but also to learn is much as he can. I am going to continue to hold off on Wellbutrin, but I will probably started up on Thursday or Thursday. Patient will continue to take part in our therapeutic milieu, attend groups and activities, maintain good hygiene, and try not to isolate. Will set up a family meeting with him and his mother. Disposition will likely be to home for spring and then back to school at the end of spring. School is involved and that they know he is in the hospital. Today I spent 38 minutes on the case. This included meeting with the patient, reviewing the chart, multidisciplinary treatment team meeting, orders, and documentation. 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 He presented to the emergency department the evening of July 06 after he got scared after an impulsive overdose of bupropion. He wa s admitted into our unit this morning on a 201 voluntary. Chief Complaint "I overdosed on Wellbutrin." Review of Systems Sleep Information Total Hours of Sleep: 7.25 Meal Information Percent Meal Consumed - Breakfast: 100 Percent Meal Consumed - Lunch: 100 Percent Meal Consumed - Dinner: 100 Subjective Subjective Today I met with the patient, reviewed the chart, and received nursing report. We also had a multidisciplinary treatment team meeting to discuss his care. Hector is in our hospital due to a recent overdose of Wellbutrin and an impulsive suicide attempt. Nurses report that he has been doing quite well on the unit. He describes his mood as 8 out of 10 where 10 is the best it could ever be. He describes himself is hopeful. He had some good visits with friends yesterday. He has been attending all groups reliably. When I met with the patient this afternoon, he said his mood is "peaceful and confident." He has talked about some of the groups and what he has been learning. He slept well. His appetite is good. He is enjoying visits with friends and talking to people on the phone. He feels like he is recovered physically from the overdose. He denies any suicidal or homicidal thoughts. He denies any hallucinations. He has been getting his Remeron and is interested in getting his Wellbutrin in the near future. Physical Exam Psychiatric Patient was alert and cooperative. He was clean and well-groomed. Eye contact was good. Speech was normal. Mood was "peaceful and confident." Affect was mostly full. Thought process was logical and goal-directed. There was no evidence of any hallucinations or delusions. Patient denied any suicidal or homicidal thoughts. Memory and concentration were good. No abnormal movements were seen. Gait was normal. Insight and judgment are impaired. Vital Signs (Past 24 Hours) Last Vital Signs Temp 36.6 C 07/08/23 06:25 Pulse 97 H 07/08/23 06:25 Resp 16 07/08/23 06:25 BP 119/81 07/08/23 06:25 Pulse Ox 98 07/07/23 08:27 O2 Del Method Room Air 07/07/23 08:27 Results & Data ([facility]) Current Inpatient Medications Current Inpatient Medications: Current Inpatient Medications Acetaminophen (Acetaminophen 325 Mg Tab) 650 mg PO Q4H PRN PRN Reason: Headache or Minor Fever Stop: 08/06/23 09:43 Al Hydrox/Mg Hydrox/Simethicone (Aluminum/Magnesium Susp 30 Ml Udc) 30 ml PO Q4H PRN PRN Reason: GI Upset Stop: 08/06/23 09:43 Bismuth Subsalicylate (Bismuth Subsalicylate Liqd 236 Ml) 15 ml PO PRN PRN PRN Reason: Loose Stool Stop: 08/06/23 09:43 Hydroxyzine HCl (Hydroxyzine Hcl 25 Mg Tab) 50 mg PO HSZ PRN PRN Reason: Insomnia Stop: 08/06/23 09:43 Hydroxyzine HCl (Hydroxyzine Hcl 25 Mg Tab) 25 mg PO Q4H PRN PRN Reason: Anxiety Stop: 08/06/23 09:43 Magnesium Hydroxide (Magnesium Hydroxide Susp 30 Ml Udc) 30 ml PO DAILY PRN PRN Reason: Constipation Stop: 08/06/23 09:43 Mirtazapine (Mirtazapine Tab 15 Mg Tab) 7.5 mg PO HS JULIA Stop: 08/06/23 21:59 Last Admin: 07/07/23 21:18 Dose: 7.5 mg Sodium Chloride (Sodium Chloride 0.65% Na Soln 45 Ml ([place])) 1 - 2 sprays NA PRN PRN PRN Reason: Nasal Dryness/Congestion Stop: 08/06/23 09:43 Mental Health & Subst Abuse Tx Psychiatrist Name of Psychiatrist: [facility]ody Zepeda Psychiatrist's Date Of Appointment With Psychiatric Provider: 08/03/2023 Time of Appointment with Psychiatrist: 4pm Psychiatric Appointment Comment: [address],[place] [id number] Therapist Name of Therapist: Ana Grier Date of Therapist Appointment: 07/21/23 Therapy Appointment Comment: telehealth portal Safety Associate Name of Safety Associate: [facility] Phone Number for Safety Associate: [phone] Date of Appointment with Safety Associate: 07/14/23 Time of Appointment with Safety Associate: 1pm Case Management Appointment Comment: Zoom link will be sent to [facility] email Post Discharge Appointments Primary Care Physician Name Of Family Doctor/PCP: [facility] Primary Care Time of Appointment with PCP: Please follow up as needed Provider Appointment Comment: [facility]
--- NOTE | 2023-07-09 15:16 | Psychiatric Progress Note ---
Date of Service July 09, 2023 Impression / Recommendations Impression This is a young man who has been pushing himself very hard for the last many years. He is always been a high achiever and is having some difficulty this semester. This makes him extremely uncomfortable and anxious and he will catastrophize about not being able to graduate. He is also the adult child of an alcoholic which I am sure is playing a factor in this. He is getting treatment for anxiety and depression and the medications are reasonable. He does have some support from friends and from family. Given the impulsivity of the overdose, I am concerned that this could happen again very easily if he does not learn some better strategies to deal with his stress. Nevertheless the fact that he cannot identify a particular trigger to the overdose is concerning because it is not clear exactly what we should be focusing on is the "the problem." 07/08/23: Patient is doing well on the unit and trying hard. He is attending groups and activities reliably. He is recovering physically. He seems to neda lly want help. 07/09/23: Patient continues to do well on the unit and is trying hard. He is recovering well from the overdose. He is trying to learn better strategies to deal with these issues in the future. (1) Major depressive disorder, single episode, severe without psychotic features: (2) Generalized anxiety disorder: Plan 1. The patient is admitted here for safety, further evaluation, and treatment. Given what happened, I think is very reasonable for him to be here. I think he is still at risk of an impulsive suicide attempt again. 2. Patient is in our psychiatric unit voluntarily. We will continue with her current level of observation and precautions. I encouraged him to participate in the therapeutic milieu to help distract him from his stress. 3. We will hold off on his Wellbutrin for now, but we will resume the mirtazapine to help him sleep at night. In the next few days we will likely restart the Wellbutrin in the XL form at 150 mg daily. 4. Our medical people are available to evaluate and treat any medical issues that may arise. 5. I encouraged the patient to take part in our therapeutic milieu, attend groups and activities, maintain good hygiene, and try not to isolate. 6. A family meeting will be set up's towards the end of his stay to help with discharge planning and safety. 7. Disposition will likely be back to his apartment so that he can continue school. 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 It will also give him a chance to catch up on his work that he might miss this week. 07/08/23: We will continue with our current level of observation and precautions. I encouraged him to keep going to groups and activities to help distract himself, but also to learn is much as he can. I am going to continue to hold off on Wellbutrin, but I will probably started up on Thursday or Thursday. Patient will continue to take part in our therapeutic milieu, attend groups and activities, maintain good hygiene, and try not to isolate. Will set up a family meeting with him and his mother. Disposition will likely be to home for spring and then back to school at the end of spring. School is involved and that they know he is in the hospital. 07/09/23: We will continue with our current level of observation and precautions. I encouraged him to keep going to groups and activities. Tomorrow morning, we will start Wellbutrin XL 150 mg daily. We reviewed the uses, side effects, and time course and he gave informed consent. Family meeting is scheduled for tomorrow and we will likely move with the discharge after that if he continues to do well. Today I used a positive psychology approach and we discussed some strategies he can use to try to help improve his mood by focusing on the good things going on around him rather than just the negative. Today I spent 43 minutes on the case. This included meeting with the patient, reviewing the chart, multidisciplinary staff meeting, orders, and documentation. 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 He presented to the emergency department the evening of July 06 after he got scared after an impulsive overdose of bupropion. He was admitted into our unit this morning on a 201 voluntary. Chief Complaint "I overdosed on Wellbutrin." Review of Systems Sleep Information Total Hours of Sleep: 7 Meal Information Percent Meal Consumed - Breakfast: 100 Percent Meal Consumed - Lunch: 100 Percent Meal Consumed - Dinner: 100 Subjective Subjective Today met with the patient, reviewed the chart, and received nursing report. We also had a multidisciplinary staff meeting to discuss his care. Cesar is in our hospital due to a recent overdose of Wellbutrin in an impulsive suicide attempt. Staff report that he has been doing well on the unit. He has a family meeting scheduled for tomorrow at 1 PM with his mother. Has been interactive with his peers. He feels confident at a 9 out of 10. When I met with the patient, he says that he is doing well physically. He denies suicidal ideation, self-harm urges, or homicidal thoughts. He denies any medical issues. He is getting along well with his peers. We talked about some strategies he can use to try to help improve his mood. Physical Exam Psychiatric Patient was alert and cooperative. He was clean and well-groomed. Eye contact was good. Speech was normal. Mood was "confident." Affect was mostly full. Thought process was logical and goal-directed. There was no evidence of any hallucinations or delusions. Patient denied any suicidal or homicidal thoughts. Memory and concentration were good. No abnormal movements were seen. Gait was normal. Insight and judgment are impaired. Vital Signs (Past 24 Hours) Last Vital Signs Temp 36.8 C 07/09/23 06:37 Pulse 96 H 07/09/23 06:38 Resp 16 07/09/23 06:37 BP 124/79 07/09/23 06:38 Pulse Ox 98 07/07/23 08:27 O2 Del Method Room Air 07/07/23 08:27 Results & Data (RUST) Current Inpatient Medications Current Inpatient Medications: Current Inpatient Medications Acetaminophen (Acetaminophen 325 Mg Tab) 650 mg PO Q4H PRN PRN Reason: Headache or Minor Fever Stop: 08/06/23 09:43 Al Hydrox/Mg Hydrox/Simethicone (Aluminum/Magnesium Susp 30 Ml Udc) 30 ml PO Q4H PRN PRN Reason: GI Upset Stop: 08/06/23 09:43 Bismuth Subsalicylate (Bismuth Subsalicylate Liqd 236 Ml) 15 ml PO PRN PRN PRN Reason: Loose Stool Stop: 08/06/23 09:43 Bupropion HCl (Bupropion Xl 150 Mg Tabcr) 150 mg PO QAM JULIA Stop: 08/09/23 08:59 Hydroxyzine HCl (Hydroxyzine Hcl 25 Mg Tab) 50 mg PO HSZ PRN PRN Reason: Insomnia Stop: 08/06/23 09:43 Hydroxyzine HCl (Hydroxyzine Hcl 25 Mg Tab) 25 mg PO Q4H PRN PRN Reason: Anxiety Stop: 08/06/23 09:43 Magnesium Hydroxide (Magnesium Hydroxide Susp 30 Ml Udc) 30 ml PO DAILY PRN PRN Reason: Constipation Stop: 08/06/23 09:43 Mirtazapine (Mirtazapine Tab 15 Mg Tab) 7.5 mg PO HS JULIA Stop: 08/06/23 21:59 Last Admin: 07/08/23 21:13 Dose: 7.5 mg Sodium Chloride (Sodium Chloride 0.65% Na Soln 45 Ml ([place])) 1 - 2 sprays NA PRN PRN PRN Reason: Nasal Dryness/Congestion Stop: 08/06/23 09:43 Mental Health & Subst Abuse Tx Psychiatrist Name of Psychiatrist: [facility] Psychiatrist's Date Of Appointment With Psychiatric Provider: 08/03/2023 Time of Appointment with Psychiatrist: 4pm Psychiatric Appointment Comment: [address],[place] [address] Therapist Name of Therapist: Ana Grier Date of Therapist Appointment: 07/21/23 Therapy Appointment Comment: telehealth portal [employer] Name of [employer]: [employer] [facility] [employer] [facility] Phone Number for [employer]: [phone] Date of Appointment with Molder Offbearer: 07/14/23 Time of Appointment with Molder Offbearer: 1pm Case Management Appointment Comment: Zoom link will be sent to [facility] email Post Discharge Appointments Primary Care Physician Name Of Family Doctor/PCP: [facility] Primary Care Time of Appointment with PCP: Please follow up as needed Provider Appointment Comment: [facility]
[2023-07-10 06:31] VITALS: TEMP 97.5
[2023-07-10] MEDS: buPROPion XL 150 MG TABCR PO SCH (08:30)
--- NOTE | 2023-07-10 08:43 | Discharge Summary ---
Date of Service July 10, 2023 History of Present Illness Today I met with the patient for approximately an hour. Patient says that yesterday, July 06 at about 4:30 PM he impulsively swallowed a handful of Wellbutrin immediate release 100 mg tablets. He thinks that it was something between 10 and 20 tablets. He says they did not start to "kick in" until around 10 PM and then he started feeling shaky and sleepy. He got scared and contacted his friend who brought him to the emergency room. He never had a seizure on this overdose. He says he started taking the medication in February 2022 and was supposed to start Wellbutrin XL 150 mg daily starting today, July 07. He says that he has been under quite a bit of stress. Since the second week of this semester, he has been turning in work that he thinks is good but he gets lower grades. He says this is happening in several classes and he is worried he may not pass all of his classes and be able to graduate on time. 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 For the last 7 weeks or so he has been feeling burned out and exhausted. Yesterday, there was no particular trigger, but it was time for him to take his normal second dose of Wellbutrin and he impulsively swallowed a bunch of them. He said that he did not expect to . There is no history of any prior suicide attempts. He said that he called his friend crying "I do not want to ." Grades have traditionally been good. 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 He is not in a relationship. He is involved in the [facility] [employer]. 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 He has no legal issues or major medical issues. He says he has good support from 3 close friends and his mother. 2 of the friends are here in school and one of them is at his home. He is currently living in [facility] in a 1 bedroom apartment close to where he goes to school. His mother and stepfather live in [place], [place] in a house with 19-year-old sister. The patient has no other siblings. He said his sleep has been good with the help of mirtazapine. Appetite is good. He described his mood as "anxious, tired, and burnt out." Energy has been poor. He has some anhedonia. There have been no changes to his concentration. He feels guilt about his academic performance. He feels somewhat hopeless about his academics. He denies homicidal or suicidal thoughts today. He denies any history of any self-harm. When asked about any history of trauma, he mentioned that his father is alcoholic and can sometimes become "aggressive." He says that he and his family are often walking on eggshells when he is in the home. He sometimes will get triggered by other people's alcohol use because it reminds him of his father's use. There are no auditory or visual hallucinations. No ideas of reference. Will sometimes vape nicotine but does not use any drugs or marijuana. He says he uses alcohol about weekly and will have 2 or 3 drinks. There is no history of any sandra. Physical Exam Psychiatric Patient was alert and cooperative. He was clean and well-groomed. Eye contact was good. Speech was normal. Mood was "confident." Affect was full. Thought process was logical and goal-directed. There was no evidence of any hallucinations or delusions. Patient denied any suicidal or homicidal thoughts. Memory and concentration were good. No abnormal movements were seen. Gait was normal. Insight and judgment are impaired. Vital Signs (Past 24 Hours) Last Vital Signs Temp 36.4 C L 07/10/23 06:30 Pulse 94 H 07/10/23 06:30 Resp 16 07/10/23 06:30 BP 119/82 07/10/23 06:30 Pulse Ox 98 07/07/23 08:27 O2 Del Method Room Air 07/07/23 08:27 Principal Diagnosis Major Depressive Disorder, single episode, severe, without psychosis Psychiatric Data Patient was admitted to our unit for safety, further evaluation, and treatment. He took part in our therapeutic milieu, attended groups and activities, maintain good hygiene, and try not to isolate. He participated extremely well and got along well with his peers. We held off on his medications because of the overdose for several days, but on July 09, I started Wellbutrin XL 150 mg daily. He will have follow-up with his primary psychiatrist in less than 2 weeks and at that point they may want to consider raising it to 300 mg daily. Family meeting will take place today at 1 PM. He has continued to deny suicidal or homicidal thoughts throughout his stay. He is very goal-directed and looking forward to a class trip to [place] connected to his [employer] major. He has recovered medically very well from the overdose and has no residual problems. Day of Discharge Assessment Today the patient voices readiness for discharge. They note improvement in mood and deny thoughts to harm self or others. Thoughts remain organized and they are improved from admission. There is no evidence of psychosis. They agree to take mediations as prescribed and keep follow-up appointments. They are stable for discharge to outpatient level of care. Transition of Care Transition Of Care Record: was reviewed with the patient Advance Directives Advance Directives Information Provided: Yes Advance Directives: No Mental Health Advance Directive: No Advance Directives on File: No Living Will: No Power of Self Rising Flour Mixer: No Advance Directives Reason:: Declines as Mental Health Visit. Suicide Risk Level Suicide Risk Level Comments: Suicide risk is very low at this point he has been denying suicidal and homicidal thoughts for several days. He has been very goal-directed and bright and his affect. Risk Factors Assessment Do You Have Access To A Gun?: No (will confirm prior to discharge) Protective Factors Assessment Employed: No Discharge Data Lab Results 07/06/23 07/06/23 07/06/23 22:35 22:48 22:50 WBC 6.02 RBC 4.95 Hgb 14.5 Hct 40.4 L MCV 81.6 MCH 29.3 MCHC 35.9 RDW Std Deviation 36.2 L RDW Coeff of Teodoro 12.2 Plt Count 348 MPV 9.1 L Immature Gran % (Auto) 0.3 Neut % (Auto) 73.1 Lymph % (Auto) 19.4 [place] % (Auto) 6.5 Eos % (Auto) 0.2 Baso % (Auto) 0.5 Neut # (Auto) 4.40 Lymph # (Auto) 1.17 L [place] # (Auto) 0.39 Eos # (Auto) 0.01 Baso # (Auto) 0.03 Immature Gran # (Auto) 0.02 Sodium 136 Potassium 3.2 L Chloride 102 Carbon Dioxide 23 Anion Gap 11 BUN 10 Creatinine 1.07 Est Cr Clr Drug Dosing 102.1 Est GFR ( Amer) 114.4 Est GFR (Non-Af Amer) 98.7 BUN/Creatinine Ratio 9.3 L Glucose 106 H Calcium 9.6 Total Bilirubin 2.6 H AST 22 ALT 21 Alkaline Phosphatase 50 Total Protein 7.3 Albumin 4.8 Globulin 2.5 Albumin/Globulin Ratio 1.9 Salicylates < 3.0 L Urine Opiates Screen Neg Ur Methadone, Qual Neg Acetaminophen < 3 L Urine Barbiturates Neg Ur Phencyclidine (PCP) Neg U Amphetamin/Meth Scrn Neg MDMA (Ecstasy) Screen Pos H U Benzodiazepines Scrn Neg Ur Cocaine Metabolite Neg U Marijuana (THC) Screen Neg Ethyl Alcohol mg/dL < 10.0 SARS-CoV-2, RNA, NAAT NEGATIVE Hospital Course (1) Major depressive disorder, single episode, severe without psychotic features: (2) Generalized anxiety disorder: Plan 1. The patient is admitted here for safety, further evaluation, and treatment. Given what happened, I think is very reasonable for him to be here. I think he is still at risk of an impulsive suicide attempt again. 2. Patient is in our psychiatric unit voluntarily. We will continue with her current level of observation and precautions. I encouraged him to participate in the therapeutic milieu to help distract him from his stress. 3. We will hold off on his Wellbutrin for now, but we will resume the mirtazapine to help him sleep at night. In the next few days we will likely restart the Wellbutrin in the XL form at 150 mg daily. 4. Our medical people are available to evaluate and treat any medical issues that may arise. 5. I encouraged the patient to take part in our therapeutic milieu, attend groups and activities, maintain good hygiene, and try not to isolate. 6. A family meeting will be set up's towards the end of his stay to help with discharge planning and safety. 7. Disposition will likely be back to his apartment so that he can continue school. He also was about to start spring break and has a marketing class activity connected to the spring break. It will also give him a chance to catch up on his work that he might miss this week. 07/08/23: We will continue with our current level of observation and precautions. I encouraged him to keep going to groups and activities to help distract himself, but also to learn is much as he can. I am going to continue to hold off on Wellbutrin, but I will probably started up on Thursday or Thursday. Patient will continue to take part in our therapeutic milieu, attend groups and activities, maintain good hygiene, and try not to isolate. Will set up a family meeting with him and his mother. Disposition will likely be to home for spring and then back to school at the end of spring. School is involved and that they know he is in the hospital. 07/09/23: We will continue with our current level of observation and precautions. I encouraged him to keep going to groups and activities. Tomorrow morning, we will start Wellbutrin XL 150 mg daily. We reviewed the uses, side effects, and time course and he gave informed consent. Family meeting is scheduled for tomorrow and we will likely move with the discharge after that if he continues to do well. Today I used a positive psychology approach and we discussed some strategies he can use to try to help improve his mood by focusing on the good things going on around him rather than just the negative. 07/10/23: We will have a family meeting today. We have set him up with outpatient services and he will continue to work with his psychiatrist. He also will be working with a therapist. Today he started on Wellbutrin XL 150 mg daily which may be increased at his outpatient visit with his psychiatrist. We are going to discharge today. Today I spent 36 minutes on the case. This included meeting with the patient, reviewing the chart, multidisciplinary treatment team meeting, orders, and documentation. Mental Health & Subst Abuse Tx Psychiatrist Name of Psychiatrist: [facility] Psychiatrist's Date Of Appointment With Psychiatric Provider: 08/03/2023 Time of Appointment with Psychiatrist: 4pm Psychiatric Appointment Comment: [address],[place] [address] Therapist Name of Therapist: Ana Grier Date of Therapist Appointment: 07/21/23 Therapy Appointment Comment: telehealth portal [employer] Name of [employer]: [facility] Phone Number for [employer]: [phone] Date of Appointment with [employer]: 07/14/23 Time of Appointment with [employer]: 1pm Case Management Appointment Comment: Zoom link will be sent to [facility] email Post Discharge Appointments Primary Care Physician Name Of Family Doctor/PCP: [facility] Primary Care Time of Appointment with PCP: Please follow up as needed Provider Appointment Comment: [facility] Discharge Plan Discharge Items Patient Disposition: Home - Self-Care Reason For Visit: MDD Discharge Diagnosis: Major Depressive Disorder, single episode, severe, without psychosis Activity: Resume your previous activity Non-emergency contact: Primary Care Provider, Psychiatrist and Therapist Call non-emergency contact if: you have any medication questions and your symptoms worsen Follow-up/Referrals: [facility] [Primary Care Provider] - Diet: Regular Addtl Attending Provider Instructions: SPECIAL CARE INSTRUCTIONS: 1. Follow through with your scheduled aftercare appointments. If unable to keep an appointment, please call to reschedule. 2. Take your medication only as prescribed. Medication should not be changed or stopped without the approval of your doctor. In the event of worsening symptoms or concerns about side effects, contact your doctor immediately. 3. Utilize new healthy coping skills, anger management skills, and stress management skills learned during your hospitalization. Journal feelings and process them with a support person. Identify stressors or situations that may result in relapse, deterioration or inappropriate behaviors and develop a plan to deal with those issues. 4. If your coping skills are ineffective and you are in crisis, contact your outpatient providers for direction. If unable to reach your providers, please call the [facility] CRISIS LINE AT , go to the [facility] walk-in center at [address] [place] [address] [facility], or go to the closest Emergency Room. 5. Avoid alcohol and un-prescribed drugs. 6. You have been provided with the Mental Health Advance Directives Pamphlet for your review. 7. Your condition is stable for discharge to outpatient level of care, but recovery is an ongoing process. Ifthoughts to harm yourself or others return, follow the safety plan developed during your stay. Planning for a safe return home includes securing weapons. Our treatment team recommends weaponsbe removed from the home until your outpatient provider reassesses your progress. In rare cases where the items themselvescannot be removed, guns and ammunitionshould be secured separatelyand keys stored by a reliable personoutside of the home. If you were admitted on an involuntary commitment, the police or other legal authorities may be involved in this process. AFTERCARE APPOINTMENTS: * Please call your insurance company prior to your scheduled appointment to confirm your aftercare providers are covered. Take your insurance information to your appointments. WHO TO CALL AND WHEN: Medical Emergencies: For questions or emergencies related to your hospital stay, please contact the Inpatient Behavioral Health Unit at [phone]. A excavating contractor is on-call 01/12 for the Behavioral Health Unit for emergencies At any time you feel your situation is an emergency, you may also call 911 immediately. Pending Studies at Discharge: No Stand-Alone Forms: My [facility] [employer], Smoking Cessation Medications and DC Order Prescriptions: New bupropion HCl 150 mg tablet extended release 24 hr 150 mg PO QAM Qty: 30 0RF Continued mirtazapine 15 mg tablet 7.5 mg PO HS Discontinued bupropion HCl 150 mg tablet sustained-release 12 hr 150 mg PO BID Discharge Orders: Discharge Order (Routine); Ordered 07/10/23 Ordered By: Mario Arreola Jr Admission Data Admit Date/Time: 07/07/23 08:35 Attending Provider: Mario Arreola Jr Admit Provider: Mario Arreola Jr Primary Care Provider: [facility] Coding Level of Care Code 72780 D/C day mgmt > 30 min Diagnoses Major depressive disorder, single episode, severe without psychotic features F32.2 Generalized anxiety disorder F41.1
[2023-07-10 08:59] VITALS: BP 119/81; PULSE 80
[2023-07-11 13:13] LABS: MDA negative; MDEA negative; MDMA (Ecstasy) Urine, Confirm negative
== END 2023-07-10 13:49 | disposition home or self-care (01) | DRG 885 ==
LOC: ED 22:26 → 3S 07-07 08:27
DX: Z79.899 Other long term (current) drug therapy; F32.2 Major depressive disorder, single episode, severe without psychotic features; T43.292A Poisoning by other antidepressants, intentional self-harm, initial encounter; Z81.8 Family history of other mental and behavioral disorders; F17.290 Nicotine dependence, other tobacco product, uncomplicated; Z55.8 Other problems related to education and literacy; F41.1 Generalized anxiety disorder; R42 Dizziness and giddiness